=== PATIENT | male | born 1935 | race Caucasian/White ===

== ENCOUNTER → 2020-07-03 | Outpatient (CLI) | payer MEDICARE, OTHER ==
--- NOTE | 2020-07-03 15:44 | RAD ---
EXAM: Lumbar spine, 5 views. HISTORY: Pain. COMPARISON: None. FINDINGS: 5 views of the lumbar spine are obtained. There is a transitional lumbosacral segment, a no rmal variant. This is considered a partially sacralized L6 segment for this dictation. There is multi level endplate remodeling and anterior osteophytosis. There is a rudimentary disc at L5 6-S1. There i s a chronic appearing mild compression fracture at L4. There is facet arthropathy predominantly at th e lower lumbar levels. There is a cardiac pacemaker leads partially included on the [id number]-gaoa. IMPRESSION: 1. Mild chronic appearing L4 compression fracture. MRI or CT is more sensitive for acute fractures. 2. Multilevel degenerative change throughout the spine. 3. Transitional lumbosacral segment, considered a partially sacralized L6 segment for this dictation. Electronically signed by: Mary Weathers MD (07/03/2020 3:41 PM) [id number]
== END ==
LOC: RAD 15:13
PROVIDERS: ATTEND Internal Medicine
DX: M47.816 Spondylosis without myelopathy or radiculopathy, lumbar region (principal); Z95.0 Presence of cardiac pacemaker
CPT/HCPCS: 72110